=== PATIENT | female | born 1940 | race Caucasian/White ===

== ENCOUNTER 2018-02-17 13:46 | Outpatient (CLI) | payer MEDICARE, BC, SELFPAY ==
--- NOTE | 2018-02-17 13:50 | DI.RAD.S_ITS ---
PROCEDURE: PAIN L/S TRANSFORAMINAL INJECT INDICATIONS: 77 year-old female with right lower extremity radiculopathy, undergoing right L2-L3 transforaminal injection. FINDINGS: Fluoroscopic spot filming was performed to verify placement of spinal needles at the right L2-L3 level(s), as labeled on the films. Appropriate location(s) of the needle tip(s) was confirmed by injection of iodinated contrast. IMPRESSION: Fluoroscopic guidance for right L2-L3 nerve root injection. Dictated by: Abraham Quiñones M.D. on 02/17/2018 at 17:38 Approved by: Abraham Quiñones M.D. on 02/17/2018 at 17:38
[2018-02-17 14:25] VITALS: BP 154/81; PULSE 82; RESP 18; TEMP 36.3; O2SAT 95
[2018-02-17 15:04] VITALS: BP 160/71; PULSE 86; RESP 13; O2SAT 100
--- NOTE | 2018-02-17 15:05 | P.PCN_ITS ---
Procedures Date/Time Date of procedure: 02/17/18 Time of procedure: 15:03 General Procedure description: PREOP DIAGNOSIS 1. FORMAINAL STENOSIS WITH LE SYMPTOMS, POST OP DIAGNOSIS 1. FORMAINAL STENOSIS WITH LE SYMPTOMS, PROCEDURES 1. FLUOROSCOPICALLY GUIDED CONTRAST CONTROLLED TRANSFORAMINAL EPIDURAL STEROID INJECTION - RIGHT L2/3 TFESI PHYSICIAN: Rowdy Juares, DO INDICATIONS Charlette is referred by Dr. Gallardo for treatment of Foraminal Stenosis with Right LE Symptoms FINDINGS Foraminal Nerve Root Compression secondary to disc disease and facet hypertrophy DESCRIPTION OF PROCEDURE Following denial of allergy and review of potential side effects and complications, including, but not necessarily limited to, infection, allergic reaction, local tissue breakdown, stroke, temporary or permanent nerve injury, paralysis, and possible , the patient indicated that the patient understood and agreed to proceed. An informed consent document was signed by the patient, witnessed by a nurse, and placed in the patient's chart. Additionally, other treatment options including medications, modalities, and physical therapy were reviewed with the patient. In the prone position following sterile prep and drape of the lumbar region, the right L2/3 posterior neuroforamen was identified fluoroscopically. The skin was anesthetized via a 25-gauge 1.5-inch needle with 1% lidocaine solution. At this point, a 25-gauge 3.5-inch spinal needle was atraumatically introduced and advanced under fluoroscopic guidance through the posterior right L2/3 neuroforamen to approximately the anterior aspect of the canal. Depth was confirmed on lateral view. Following negative aspiration, injection of approximately 1.5 cc of Isovue 200 under live fluoroscopy in the AP view confirmed excellent flow along the nerve root, into the epidural space without vascular or intrathecal uptake observed Radiological data, including multiple fluoroscopic views of the lumbosacral spine, reveal a spinal needle at the right L2/3 posterior neuroforamen. Subsequent views show flow of contrast material flowing superiorly and inferiorly along the nerve root confirming epidural flow. Subsequently, a test dose of 1.5 cc of 1% lidocaine solution was administered and patient was observed for signs or symptoms of complications, including abdominal pain, shortness of breath, bilateral upper or lower extremity weakness , nausea and vomiting, prior to steroid injection. At this point, a total of 3cc or 20 mg of dexamethasone and 80mg Depo medrol was injected without incident. The patient was then transferred to the recovery area where they were observed for an appropriate time after the injection. The patient reported a VAS score of 7 prior to the procedure and a post-procedure VAS of 0. Total Fluoroscopy Time: 17.3 seconds Total Conscious Sedation Time: 24min POST OP INSTRUCTIONS The patient was provided a Pain Log to continue to record their response to the target-specific procedure prior to follow-up visit with their referring physician. Additionally, specific post-injection care instructions and a contact number to our office were provided if concerns arise regarding possible complications associated with the procedure are suspected. Rowdy Juares DO Complications: none
[2018-02-17 15:14] VITALS: BP 154/74; PULSE 77; RESP 16; O2SAT 100
[2018-02-17 15:19] VITALS: BP 160/114; PULSE 80; RESP 15; O2SAT 100
[2018-02-17] MEDS: BUPIVACAINE 0.25% (PF) 30 ML VIAL INJ (15:20)
[2018-02-17] MEDS: IOPAMIDOL 15 ML VIAL 3 ML INJ (15:20)
[2018-02-17] MEDS: DEXAMETHASONE 10 MG/ML VIAL 20 MG INJ (15:20)
[2018-02-17] MEDS: methylPREDNISolone acetate 80 MG/ML VIAL INJ (15:20)
[2018-02-17 15:25] VITALS: PULSE 79; RESP 16; O2SAT 98
[2018-02-17 15:45] VITALS: BP 157/73; PULSE 80; RESP 16; RESP 18; O2SAT 98; O2SAT 99
== END 2018-02-17 16:15 ==
LOC: RAD 13:48
PROVIDERS: PCP Family Medicine; Visit Provider Physical Medicine & Rehabilitation
DX: M48.061 Spinal stenosis, lumbar region without neurogenic claudication (principal); M51.16 Intervertebral disc disorders with radiculopathy, lumbar region; M41.20 Other idiopathic scoliosis, site unspecified; Z98.890 Other specified postprocedural states
CPT/HCPCS: 64483; J1040; J1100

== ENCOUNTER 2018-03-31 13:53 | Outpatient (CLI) | payer MEDICARE, BC, SELFPAY ==
[2018-03-31] VITALS (7 sets, daily range): BP systolic 141–181; BP diastolic 78–101; PULSE 73–85; RESP 18; TEMP 36.2; O2SAT 94–96
--- NOTE | 2018-03-31 13:58 | DI.RAD.S_ITS ---
PROCEDURE: PAIN L INTERLAMINAR/CAUDAL INJ INDICATIONS: SPINAL STENOSIS FINDINGS: Fluoroscopic spot filming was performed to verify placement of spinal needles at the bilateral L1-L2 interlaminar level, as labeled on the films. Appropriate location(s) of the needle tip(s) was confirmed by injection of iodinated contrast. IMPRESSION: Successful needle tip localization for interlaminar epidural steroid injection at L1-L2 midline dorsally. Dictated by: Earl Birmingham M.D. on 03/31/2018 at 16:00 Approved by: Earl Birmingham M.D. on 03/31/2018 at 16:01
--- NOTE | 2018-03-31 14:30 | P.PCN_ITS ---
Procedures Date/Time Date of procedure: 03/31/18 Time of procedure: 14:28 General Procedure description: POST OP DIAGNOSIS 1. HNP WITH RADICULAR FEATURES, 2. MULTILEVEL CENTRAL STENOSIS, PROCEDURES 1. FLUORSCOPICALLY GUIDED CONTRAST CONTROLLED INTERLAMINAR EPIDURAL STEROID INJECTION - L1/2 PHYSICIAN: Rowdy Juares DO INDICATIONS: Charlette is referred by Dr. Gallardo for treatment of Bilateral Foraminal Stenosis L> R LE symptoms. FINDINGS Multilevel Central Spinal Stenosis with Nerve Root Compression DESCRIPTION OF PROCEDURE Fluoroscopically guided, contrast-controlled L1/2 translaminar epidural steroid injection. Following denial of allergy and review of potential side effects and complications, including, but not necessarily limited to, infection, allergic reaction, local tissue breakdown, temporary as well as permanent nerve injury, paralysis, stroke and possible , the patient indicated that the patient understood and agreed to proceed. An informed consent document was signed by the patient, witnessed by a nurse, and placed in the patient's chart. Additionally, other treatment options including modalities, medications, and physical therapy were reviewed with the patient. In the prone position, following sterile prep and drape of the lumbar region, the L1/2 translaminar space was identified fluoroscopically. The skin was anesthetized via a 25-gauge, 1.5-inch needle with 1% lidocaine solution. At this point, a 22-gauge short bevel spinal needle was atraumatically introduced and advanced under fluoroscopic guidance into the region of the L1/2 translaminar space. Depth was confirmed on lateral view. Radiological data, including multiple fluoroscopic views of the lumbar spine, reveal a spinal needle at the L1/2 translaminar space. Lateral views then show placement of the needle in the epidural space. Subsequent views show contrast material flowing superiorly and inferiorly in the epidural space. No vascular or intrathecal uptake is observed. At this point, using loss of resistance technique with saline and air, the epidural space was entered. This was confirmed following negative aspiration with injection of approximately 1.5 cc of Isovue 200, showing excellent epidural flow without vascular or intrathecal uptake. At this point, 1 cc of 1 % lidocaine solution combined with 3 cc or 20 mg of dexamethasone and 80mg Depo medrol was injected without incident. The procedure tolerated the procedure well without signs or symptoms of complications prior to transfer to the recovery area continued monitoring without incident.The patient was then transferred to the recovery area where they were observed for an appropriate period of time after the injection. The patient reported a VAS score of 6 prior to the procedure and a post- procedure VAS of 0. Total Fluoroscopy Time: 11.8 seconds Total Conscious Sedation Time: 0min POST OP INSTRUCTIONS The patient was provided a Pain Log to continue to record their response to the target-specific procedure prior to follow-up visit with their referring physician. Additionally, specific post-injection care instructions and a contact number to our office were provided if concerns arise regarding possible complications associated with the procedure are suspected. Rowdy Juares DO Complications: none
[2018-03-31] MEDS: DEXAMETHASONE 10 MG/ML VIAL 20 MG INJ (14:39)
[2018-03-31] MEDS: IOPAMIDOL 15 ML VIAL 3 ML INJ (14:39)
[2018-03-31] MEDS: methylPREDNISolone acetate 80 MG/ML VIAL INJ (14:39)
[2018-03-31] MEDS: BUPIVACAINE 0.25% (PF) VIAL 2 ML INJ (14:39)
--- NOTE | 2018-03-31 14:58 | PM.PROC.1 ---
Procedures Date/Time Date of procedure: 03/31/18 Time of procedure: 14:58 General Complications: none
== END 2018-03-31 16:01 ==
LOC: RAD 13:57
PROVIDERS: PCP Family Medicine; Visit Provider Physical Medicine & Rehabilitation
DX: M51.16 Intervertebral disc disorders with radiculopathy, lumbar region (principal); M48.061 Spinal stenosis, lumbar region without neurogenic claudication
CPT/HCPCS: 62323; J1040; J1100; J2250

== ENCOUNTER 2018-04-28 11:10 | Outpatient (CLI) | payer MEDICARE, BC, SELFPAY ==
[2018-04-28] VITALS (8 sets, daily range): BP systolic 108–173; BP diastolic 64–101; PULSE 71–80; RESP 15–20; TEMP 35.9; O2SAT 94–98
--- NOTE | 2018-04-28 11:12 | DI.RAD.S_ITS ---
PROCEDURE: PAIN L INTERLAMINAR/CAUDAL INJ INDICATIONS: [place] L2/3 TL UDAY FINDINGS: Fluoroscopic spot filming was performed to verify placement of spinal needles at the mid lung sacral spine level(s), as labeled on the films. Appropriate location(s) of the needle tip(s) was confirmed by injection of iodinated contrast. IMPRESSION: Successful mid lumbosacral spine localization reportedly at the L2-L3 level for epidural steroid injection. Dictated by: Earl Birmingham M.D. on 04/28/2018 at 13:09 Approved by: Earl Birmingham M.D. on 04/28/2018 at 13:22
--- NOTE | 2018-04-28 11:53 | P.PCN_ITS ---
Procedures Date/Time Date of procedure: 04/28/18 Time of procedure: 11:52 General Procedure description: POST OP DIAGNOSIS 1. HNP WITH RADICULAR FEATURES, 2. MULTILEVEL CENTRAL STENOSIS, PROCEDURES 1. FLUORSCOPICALLY GUIDED CONTRAST CONTROLLED INTERLAMINAR EPIDURAL STEROID INJECTION - L2/3 PHYSICIAN: DO PANCHO Dawkins Charlette is referred by for treatment of Bilateral Foraminal Stenosis L> R LE symptoms. FINDINGS Multilevel Central Spinal Stenosis with Nerve Root Compression DESCRIPTION OF PROCEDURE Fluoroscopically guided, contrast-controlled L2/3 translaminar epidural steroid injection. Following denial of allergy and review of potential side effects and complications, including, but not necessarily limited to, infection, allergic reaction, local tissue breakdown, temporary as well as permanent nerve injury, paralysis, stroke and possible , the patient indicated that the patient understood and agreed to proceed. An informed consent document was signed by the patient, witnessed by a nurse, and placed in the patient's chart. Additionally, other treatment options including modalities, medications, and physical therapy were reviewed with the patient. In the prone position, following sterile prep and drape of the lumbar region, the L2/3 translaminar space was identified fluoroscopically. The skin was anesthetized via a 25-gauge, 1.5-inch needle with 1% lidocaine solution. At this point, a 22-gauge short bevel spinal needle was atraumatically introduced and advanced under fluoroscopic guidance into the region of the L2/3 translaminar space. Depth was confirmed on lateral view. Radiological data, including multiple fluoroscopic views of the lumbar spine, reveal a spinal needle at the L2/3 translaminar space. Lateral views then show placement of the needle in the epidural space. Subsequent views show contrast material flowing superiorly and inferiorly in the epidural space. No vascular or intrathecal uptake is observed. At this point, using loss of resistance technique with saline and air, the epidural space was entered. This was confirmed following negative aspiration with injection of approximately 1.5 cc of Isovue 200, showing excellent epidural flow without vascular or intrathecal uptake. At this point, 1 cc of 1 % lidocaine solution combined with 3 cc or 20 mg of dexamethasone and 80mg Depo medrol was injected without incident. The patient tolerated the procedure well without signs or symptoms of complications prior to transfer to the recovery area continued monitoring without incident. The patient was then transferred to the recovery area where they were observed for an appropriate period of time after the injection. The patient reported a VAS score of 6 prior to the procedure and a post-procedure VAS of 0. Total Fluoroscopy Time: 11.8 seconds Total Conscious Sedation Time: 0min POST OP INSTRUCTIONS The patient was provided a Pain Log to continue to record their response to the target-specific procedure prior to follow-up visit with their referring physician. Additionally, specific post-injection care instructions and a contact number to our office were provided if concerns arise regarding possible complications associated with the procedure are suspected. Rowdy Juares DO
[2018-04-28] MEDS: BUPIVACAINE 0.25% (PF) VIAL 2 ML INJ (12:11)
[2018-04-28] MEDS: BETAMETHASONE 30 MG/5 ML MDV 12 MG INJ (12:11)
[2018-04-28] MEDS: IOPAMIDOL 15 ML VIAL 3 ML INJ (12:12)
== END 2018-04-28 12:17 ==
LOC: RAD 11:11
PROVIDERS: PCP Family Medicine; Visit Provider Physical Medicine & Rehabilitation
DX: M48.061 Spinal stenosis, lumbar region without neurogenic claudication (principal); M54.16 Radiculopathy, lumbar region; M51.26 Other intervertebral disc displacement, lumbar region
CPT/HCPCS: 62323; J0702; J2250